=== PATIENT | male | born 1945 | race Caucasian/White ===

== ENCOUNTER 2017-01-01 10:56 | Emergency (ER) | payer MEDICARE, OTHER ==
[~2017-01-01] VITALS: Ht 162.6 cm; Wt 86.2 kg
[2017-01-01 11:12] VITALS: BP 126/66
[2017-01-01 12:02] LABS: BASOPHILS % (AUTO) 0.8 % (0.0-2.0); EOSINOPHILS % (AUTO) 0.4 % (0.0-3.0); LYMPHOCYTES % (AUTO) 16.3 % (20.0-45.0); MEAN CORPUSCULAR HEMOGLOBIN 31.9 PG (27.0-31.0); MEAN CORPUSCULAR VOLUME 97 FL (80-99); MEAN PLATELET VOLUME 7.6 FL (6.5-10.1); MONOCYTES % (AUTO) 7.5 % (1.0-10.0); PLATELET COUNT 306 K/UL (150-450); RED BLOOD COUNT 4.13 M/UL (4.70-6.10); RED CELL DISTRIBUTION WIDTH 12.2 % (11.6-14.8); WHITE BLOOD COUNT 9.1 K/UL (4.8-10.8)
[2017-01-01 12:20] LABS: TROPONIN I < 0.30 ng/mL (<=0.30)
[2017-01-01 12:23] LABS: ACETAMINOPHEN < 10 ug/mL (10-30); ALANINE AMINOTRANSFERASE 36 U/L (3-41); ALCOHOL < 10 mg/dL; ANION GAP 14 (5-15); ASPARTATE AMINO TRANSFERASE 25 U/L (5-40); CALCIUM 9.2 mg/dL (8.6-10.2); CARBON DIOXIDE 22 mEQ/L (20-30); CHLORIDE 100 mEQ/L (98-107); CREATININE 1.1 mg/dL (0.7-1.2); GLOMERULAR FILTRATION RATE > 60 mL/min (>60); HEMOLYSIS 7; POTASSIUM 3.9 mEQ/L (3.4-4.9); SODIUM 136 mEQ/L (135-145); TOTAL PROTEIN 7.5 g/dL (6.6-8.7)
--- NOTE | 2017-01-01 14:36 | Consultation ---
History of Present Illness General Chief Complaint: General Complaint Present Illness HPI the pt with hx of stroke and he is hard of hearing. the pt stated that he has a history of depression while back and saw a psychiatrist years ago. the pt stated that he is not "depressed but he is unhappy." the pt reported suicidal ideation to Dr. Lara and stated that he wanted to jump from a building or he wanted to walk into the traffic. the pt stated that he came to ER because he wanted to get his blood pressured checked. "I felt my blood pressure was high. I wanted to be safe and not have another stroke." The pt stated that he is fighting with his sister "she likes to complain alot and we argue a lot. I felt sick and I came in to er to get myself checked." the pt endorses, mild depressed mood, he denied any other sxs. He denied having suicidal or homicidal ideation. the pt was a good historian. He has no history of drug or alcohol. The pt stated that her sister is in fact supportive. the pt has no pain. the pt has no financial stress. the pt has no suicidal attempt in past. the pt has no history of psychiatric hospitalization. the pt has no legal issues. the pt is independent. the pt would like to go home. sister is on her way. Allergies: Coded Allergies: No Known Allergies (Unverified , 09/12/12) Patient History History Provided By: Patient, Medical Record, PMD Healthcare decision maker Resuscitation status Advanced Directive on File Past Medical/Surgical History Past Medical/Surgical History: (1) Stroke (2) Hard of hearing Family History Family History: (1) Stroke (2) Hard of hearing Review of Systems ENT: Reports: hearing loss Psychiatric: Reports: prior hx, depressed feelings, emotional problems Physical Exam General Appearance: no apparent distress, alert, overweight Neurologic: alert, oriented x 3, responsive, normal mood/affect Last 24 Hour Vital Signs Date Time Temp Pulse Resp B/P (MAP) Pulse Ox O2 Delivery O2 Flow Rate FiO2 01/01/17 11:12 99.0 61 17 126/66 100 Room Air 01/01/17 11:06 99.0 80 18 154/75 99 Room Air Laboratory Tests Test 01/01/17 11:43 01/01/17 12:12 White Blood Count 9.1 K/UL (4.8-10.8) Red Blood Count 4.13 M/UL (4.70-6.10) L Hemoglobin 13.2 G/DL (14.2-18.0) L Hematocrit 39.9 % (42.0-52.0) L Mean Corpuscular Volume 97 FL (80-99) Mean Corpuscular Hemoglobin 31.9 PG (27.0-31.0) H Mean Corpuscular Hemoglobin Concent 33.0 G/DL (32.0-36.0) Red Cell Distribution Width 12.2 % (11.6-14.8) Platelet Count 306 K/UL (150-450) Mean Platelet Volume 7.6 FL (6.5-10.1) Neutrophils (%) (Auto) 75.0 % (45.0-75.0) Lymphocytes (%) (Auto) 16.3 % (20.0-45.0) L Monocytes (%) (Auto) 7.5 % (1.0-10.0) Eosinophils (%) (Auto) 0.4 % (0.0-3.0) Basophils (%) (Auto) 0.8 % (0.0-2.0) Sodium Level 136 mEQ/L (135-145) Potassium Level 3.9 mEQ/L (3.4-4.9) Chloride Level 100 mEQ/L (98-107) Carbon Dioxide Level 22 mEQ/L (20-30) Anion Gap 14 (5-15) Blood Urea Nitrogen 10 mg/dL (7-23) Creatinine 1.1 mg/dL (0.7-1.2) Estimat Glomerular Filtration Rate > 60 mL/min (>60) Glucose Level 126 mg/dL (74-106) H Calcium Level 9.2 mg/dL (8.6-10.2) Total Bilirubin 0.4 mg/dL (0.0-1.2) Aspartate Amino Transf (AST/SGOT) 25 U/L (5-40) Alanine Aminotransferase (ALT/SGPT) 36 U/L (3-41) Alkaline Phosphatase 86 U/L (40-129) Total Creatine Kinase 87 U/L (38-174) Troponin I < 0.30 ng/mL (<=0.30) Total Protein 7.5 g/dL (6.6-8.7) Albumin 3.9 g/dL (3.5-5.2) Globulin 3.6 g/dL Albumin/Globulin Ratio 1.0 (1.0-2.7) Thyroid Stimulating Hormone (TSH) 1.310 uIU/mL (0.300-4.500) Salicylates Level < 1 mg/dL (10-30) L Acetaminophen Level < 10 ug/mL (10-30) L Serum Alcohol < 10 mg/dL Urine Opiates Screen Negative (NEGATIVE) Urine Barbiturates Screen Negative (NEGATIVE) Phencyclidine (PCP) Screen Negative (NEGATIVE) Urine Amphetamines Screen Negative (NEGATIVE) Urine Benzodiazepines Screen Negative (NEGATIVE) Urine Cocaine Screen Negative (NEGATIVE) Urine Marijuana (THC) Screen Negative (NEGATIVE) Height (Feet): 5 Height (Inches): 4.00 Weight (Pounds): 190 Assessment/Plan Status: stable Assessment/Plan MDD mild, the pt is not at imminent dts/dto. -lexapro 10mg po qam -no 5150 -the pt will follow outpt program at [facility]. Brandee Cuevas M.D. Jan 01, 2017 14:36
--- NOTE | 2017-01-01 14:48 | Emergency Room Report ---
History of Present Illness General Chief Complaint: General Complaint Source: Patient, Medical Record, PMD Present Illness HPI The patient presents not feeling well. He is concerned that his blood pressure is high. In addition to that he states is depressed about his living situation. He alleges he had two strokes in October. He was discharged to living situation which is down the street from the sister. He's afraid of his sister, though he doesn't feel she will harm him. He feels suicidal at this time. His plan would be to jump off a building or jump in front of a truck. He is not taking medication for the depression. He denies voices. He denies wanting to harm others. The patient has a history of depression and was hospitalized when he was age 16. He's not on medication at this time for depression. He does take medication for a stroke in for high lipids. No fever, headache, NVD, URI, cough, chest pain, dysuria, rashes, joint pain, palpitations. He denies any muscle weakness or change in vision or sensation. Allergies: Coded Allergies: No Known Allergies (Unverified , 09/12/12) Patient History Past Medical History: see triage record, psych hx Social History: Denies: smoking, alcohol use, drug use Social History Narrative lives by his sister Reviewed Nursing Documentation: PMH: Agreed, PSxH: Agreed Nursing Documentation-PM Past Medical History: No History, Except For Hx Hypertension: Yes History Of Psychiatric Problem: Yes - anxiety, depression Hx Cerebrovascular Accident: Yes Review of Systems All Other Systems: negative except mentioned in HPI Physical Exam Vital Signs Date Time Temp Pulse Resp B/P (MAP) Pulse Ox O2 Delivery O2 Flow Rate FiO2 01/01/17 11:06 99.0 80 18 154/75 99 Room Air Sp02 EP Interpretation: reviewed, normal General Appearance: well appearing, no apparent distress, GCS 15 Head: normocephalic Eyes: bilateral eye normal inspection, bilateral eye PERRL, bilateral eye EOMI ENT: moist mucus membranes Neck: supple Respiratory: lungs clear, normal breath sounds Cardiovascular #1: regular rate, rhythm Cardiovascular #2: 2+ radial (R) Gastrointestinal: normal inspection, normal bowel sounds, non tender, no mass, non-distended Musculoskeletal: back normal, gait/station normal, normal range of motion Neurologic: alert, oriented x3, employee relations manager III-XII nml as tested, motor strength/tone normal, DTRs symmetric, sensory intact, cerebellar normal, normal gait, speech normal Psychiatric: depressed affect Suicide Risk Assessment: Suicidal Ideation: Yes Had intent to initiate attempt: Yes Pt's plan for suicide attempt: Yes Has means to complete attempt: Yes Skin: normal inspection, warm/dry Medical Decision Making Diagnostic Impression: Primary Impression: Depression Qualified Codes: F32.9 - Major depressive disorder, single episode, unspecified ER Course Patient presents with malaise and suicidal ideation. Ddx: electrolyte imbalance , exacerbation of depression, drug or medication adverse reaction, temporal lobe seizure amongst others. There is no evidence of stroke at this time - CT not indicated. Evaluation with EKG, and labs. Complicated patient who if medically cleared will need psychiatric evaluation. Consider hold patient if demonstrates continued desire to harm self. HTN not significant at this time. Medical evaluation completed and patient medically cleared. Patient evaluated by Dr. Cuevas. [place] stable for discharge. Rx Lexapro. Patient stable for outpatient observation and treatment. Laboratory Tests Test 01/01/17 11:43 01/01/17 12:12 White Blood Count 9.1 K/UL (4.8-10.8) Red Blood Count 4.13 M/UL (4.70-6.10) L Hemoglobin 13.2 G/DL (14.2-18.0) L Hematocrit 39.9 % (42.0-52.0) L Mean Corpuscular Volume 97 FL (80-99) Mean Corpuscular Hemoglobin 31.9 PG (27.0-31.0) H Mean Corpuscular Hemoglobin Concent 33.0 G/DL (32.0-36.0) Red Cell Distribution Width 12.2 % (11.6-14.8) Platelet Count 306 K/UL (150-450) Mean Platelet Volume 7.6 FL (6.5-10.1) Neutrophils (%) (Auto) 75.0 % (45.0-75.0) Lymphocytes (%) (Auto) 16.3 % (20.0-45.0) L Monocytes (%) (Auto) 7.5 % (1.0-10.0) Eosinophils (%) (Auto) 0.4 % (0.0-3.0) Basophils (%) (Auto) 0.8 % (0.0-2.0) Sodium Level 136 mEQ/L (135-145) Potassium Level 3.9 mEQ/L (3.4-4.9) Chloride Level 100 mEQ/L (98-107) Carbon Dioxide Level 22 mEQ/L (20-30) Anion Gap 14 (5-15) Blood Urea Nitrogen 10 mg/dL (7-23) Creatinine 1.1 mg/dL (0.7-1.2) Estimate Glomerular Filtration Rate > 60 mL/min (>60) Glucose Level 126 mg/dL (74-106) H Calcium Level 9.2 mg/dL (8.6-10.2) Total Bilirubin 0.4 mg/dL (0.0-1.2) Aspartate Amino Transferase (AST) 25 U/L (5-40) Alanine Aminotransferase (ALT) 36 U/L (3-41) Alkaline Phosphatase 86 U/L (40-129) Total Creatine Kinase 87 U/L (38-174) Troponin I < 0.30 ng/mL (<=0.30) Total Protein 7.5 g/dL (6.6-8.7) Albumin 3.9 g/dL (3.5-5.2) Globulin 3.6 g/dL Albumin/Globulin Ratio 1.0 (1.0-2.7) Thyroid Stimulating Hormone (TSH) 1.310 uIU/mL (0.300-4.500) Salicylates Level < 1 mg/dL (10-30) L Acetaminophen Level < 10 ug/mL (10-30) L Serum Alcohol < 10 mg/dL Urine Opiates Screen Negative (NEGATIVE) Urine Barbiturates Screen Negative (NEGATIVE) Phencyclidine (PCP) Screen Negative (NEGATIVE) Urine Amphetamines Screen Negative (NEGATIVE) Urine Benzodiazepines Screen Negative (NEGATIVE) Urine Cocaine Screen Negative (NEGATIVE) Urine Marijuana (THC) Screen Negative (NEGATIVE) EKG Diagnostic Results Rate: normal Rhythm: NSR ST Segments: no acute changes Rhythm Strip Diag. Results EP Interpretation: yes Rhythm: NSR, no PVC's, no ectopy Last Vital Signs Date Time Temp Pulse Resp B/P (MAP) Pulse Ox O2 Delivery O2 Flow Rate FiO2 01/01/17 15:15 62 18 149/87 98 Room Air 01/01/17 15:15 97.6 Status: improved Disposition: HOME, SELF-CARE Condition: Improved Scripts Escitalopram Oxalate* (LEXAPRO*) 10 Mg Tablet 10 MG ORAL DAILY, #20 TAB Prov: David Lara M.D. 01/01/17 Referrals: NON PHYSICIAN (PCP) David Lara M.D. Jan 01, 2017 14:48
[2017-01-01] MEDS ORDERED: LEXAPRO10 MG ORAL (14:50)
[2017-01-01 15:15] VITALS: BP 126/66
--- NOTE | 2017-01-05 17:01 | Cardiology Report ---
APPROVED REPORT EKG Measurement Heart [id number] Normal sinus rhythm Minimal voltage criteria for LVH, may be normal variant Borderline ECG
== END 2017-01-01 15:15 | disposition home or self-care (01) ==
LOC: EMR 11:55
DX: F32.9 Major depressive disorder, single episode, unspecified (principal); F41.9 Anxiety disorder, unspecified; Z86.73 Personal history of transient ischemic attack (TIA), and cerebral infarction without residual deficits; I10 Essential (primary) hypertension
CPT/HCPCS: 36415; 80053; 80300; 82550; 84443; 84484; 85025; 93005; 99283; G0480; 80329